=== PATIENT | male | born 2000 | race Hispanic/Latino ===

== ENCOUNTER 2022-08-02 17:40 | Emergency (ER) | payer BC, MEDICAID ==
[~2022-08-02] VITALS: Ht 170.2 cm; Wt 56.7 kg
[2022-08-02 20:30] VITALS: BP 132/68
== END 2022-08-02 20:43 | disposition home or self-care (01) ==
LOC: EDH 17:40
DX: S62.306A Unspecified fracture of fifth metacarpal bone, right hand, initial encounter for closed fracture (principal); W01.0XXA Fall on same level from slipping, tripping and stumbling without subsequent striking against object, initial encounter; Y93.89 Activity, other specified; Y92.89 Other specified places as the place of occurrence of the external cause; Y99.8 Other external cause status
CPT/HCPCS: 29125; 73130

== ENCOUNTER 2023-03-15 11:33 | Emergency (ER) | payer BC, OTHER ==
[~2023-03-15] VITALS: Ht 170.2 cm; Wt 54.4 kg
[2023-03-15 13:02] VITALS: BP 131/74; PULSE 73; RESP 16
[2023-03-15] MEDS ORDERED: AMOX1TAB16 PO (15:36)
== END 2023-03-15 16:01 | disposition home or self-care (01) ==
LOC: EDH 11:33
DX: S62.396A Other fracture of fifth metacarpal bone, right hand, initial encounter for closed fracture (principal); W54.0XXA Bitten by dog, initial encounter; Y93.89 Activity, other specified; Y92.89 Other specified places as the place of occurrence of the external cause; Y99.8 Other external cause status
CPT/HCPCS: 73130